=== PATIENT | female | born 1935 | race Caucasian/White ===

== ENCOUNTER → 2021-03-04 | Outpatient (CLI) | payer MEDICARE, OTHER ==
[~2021-03-04] MED LIST: ASA81BEC PO; BIOTIN; CALCIUM; CLARITIN10 MG PO; CULTURELLE KID1 EAC1 PO; INDERAL LA120 M1 PO; MAXZIDE-25 MG1 EACH PO; MELOXICAM7.5 MG PO; PREMARIN0.625 MG PO; PROZAC10 M1 PO; RIVASTIGMINE3 MG PO; SINGULAIR 10 MG10 MG PO; SYNTHROID100 MC1 PO; TOPROL XL50 MG PO; TYLENOL 8 HOUR650 MG PO; VITAMIN C; VITAMIN D; VYTORIN 10-401 EACH PO; [UNRECOGNIZED DRUG - OTHER]
--- NOTE | 2021-03-04 17:42 | CARDNUC ---
[place] [address] CARDIAC NUCLEAR IMAGING REPORT Name: EDEN MARTINEZ Room: [facility]#: [id number] Admission: 03/04/21 Attend Phys: Luis Miguel Booth, Discharge: Date of : 35 Date of Service: 03/04/21 1742 Report #: [id number] THIS REPORT FOR: cc: Gloria Barraza MD, Jayne Lora MD Liston, Michael J. MD [facility] ~ APPROVED REPORT Study performed: 03/04/2021 14:20:10 Exam: Nuclear Stress Test Indication: Chest pain, ABN EKG, rapid HR, VPC's, palpitations. Patient Location: Out-Patient Stress Tech: Rebekah Ruiz Stress Nurse: Laurence Snyder Tech:SHIRA Galarza Ht: 5 ft 4 in Wt: 158 lbs BSA: 1.77 m2 BMI: 27.11 Medical History Medical History: Chest pain, ABN EKG, HTN, HLD, rapid HR, LBBB, palpitations, VPC's, recent fall, OA, aortic aneurysm, dementia, breast cancer, hypothyroidism, near syncope, scoliosis, spinal stenosis, vertigo, knee and spine surgery, poor historian. Medications: ASA 81 mg, vytorin, propranolol, dyazide. Allergies: [facility] Cardiac Risk Factors: Age, HTN, Hyperlipidemia, VPC's, aortic aneurysm, LBBB. Previous Cardiac Procedures: None Pretest Chest Pain Characteristics: No chest pain Exercise History: Sedentary Physical Disabilities: LBBB, weakness, unstable gait. Meds Held (24 hrs): Propranolol. Stress Test Details Stress Test: Pharmacologic stress testing performed using 0.4 mg of regadenoson per 5 mL given IV over 10 seconds. Reason for pharmacologic stress test: LBBB, weakness, unstable gait.. HR Resting HR: 74 bpm Max Heart Rate (APMHR): 135 [place] [address] CARDIAC NUCLEAR IMAGING REPORT Name: EDEN MARTINEZ Room: [facility]#: [id number] Admission: 03/04/21 Attend Phys: Luis Miguel Booth, Discharge: Date of : 35 Date of Service: 03/04/21 1742 Report #: [id number] Max HR Achieved: 124 bpm Target HR (85% APMHR): 114 bpm % of APMHR: 91 Recovery HR: 96 bpm BP Resting BP: 197/86 mmHg Max BP: 188/74 mmHg ECG Resting ECG: Sinus Rhythm, LBBB Stress ECG: Sinus tachycardia, LBBB ST Change: None Arrhythmia: VPC's Recovery ECG: Sinus Rhythm, LBBB Recovery ST Change: None Recovery Arrhythmia: VPC's Clinical Reason for Termination: Completed protocol Stress Symptoms: Dyspnea, chest heaviness, heart skipping feeling, headache, shaky hands/arms. Exercise duration: 00 min 00 sec Exercise capacity: 1.00 METs The patient tolerated Lexiscan stress protocol without significant cardiac symptoms. Nurse Comments An 85 year old female presented for a sitting Lexiscan. Test well tolerated. Recovery unremarkable. Patient was stable and stated she felt good when escorted via wheelchair to Nuclear Medicine for imaging. Stress ECG Conclusion The baseline twelve-lead EKG shows sinus rhythm with left bundle branch block. EKGs obtained during and post Lexiscan showed sinus rhythm and sinus tachycardia with left bundle branch block. There were frequent unifocal premature ventricular contractions noted. NM EXAM: Myocardial Perfusion REST/STRESS Imaging Protocol: Rest Tc-99m/Stress Tc-99m 1 day Resting Data Rest SPECT myocardial perfusion imaging was performed in supine position 30 minutes following the intravenous injection of 11.8 mCi of Tc-99m Sestamibi. Time of rest injection: 1255 Date: 03/04/2021 [place] [address] CARDIAC NUCLEAR IMAGING REPORT Name: EDEN MARTINEZ Room: [facility]#: [id number] Admission: 03/04/21 Attend Phys: Luis Miguel Booth, Discharge: Date of : 35 Date of Service: 03/04/21 1742 Report #: [id number] The images were gated to evaluate regional wall motion and calculate left ventricular ejection fraction. Administration Route: IV Administration Site: Left AC Pharmacologic Stress Pharmacologic stress test was performed by injecting Regadenoson 0.4 mg IV push followed by the intravenous injection of 32.4 mCi of Tc-99m Sestamibi. Time of stress injection: 1440 Date: 03/04/2021 Administration Route: IV Administration Site: Left AC Gated Stress SPECT was performed 40 minutes after stress injection. The images were gated to evaluate regional wall motion and calculate left ventricular ejection fraction. Prone imaging was performed. Study Quality Study: Fair Artifact: Moderate Breast artifact Study Data At rest, the left ventricular ejection fraction was 84%.. Post stress, the left ventricular ejection was 85%.. TID = 1.18. Perfusion Perfusion images obtained at rest and post Lexiscan stress show relatively uniform uptake of the radioisotope throughout the myocardium. There is a moderate amount of mild breast attenuation artifact noted. Wall Motion Normal left ventricular wall motion. Nuclear Conclusion ECG Findings: non-diagnostic Clinical Findings: negative for ischemia Nuclear Findings: negative for ischemia Exercise Capacity: not assessed Left Ventricular Function: normal Risk Study: low Perfusion study show no defect to suggest infarct or ischemia. Left ventricular systolic function appears normal on gated study. This [place] [address] CARDIAC NUCLEAR IMAGING REPORT Name: ALPHONSODENISSEEDEN C Room: [facility]#: [id number] Admission: 03/04/21 Attend Phys: Luis Miguel Booth, Discharge: Date of : 35 Date of Service: 03/04/21 1742 Report #: [id number] <Conclusion> The baseline twelve-lead EKG shows sinus rhythm with left bundle branch block. EKGs obtained during and post Lexiscan showed sinus rhythm and sinus tachycardia with left bundle branch block. There were frequent unifocal premature ventricular contractions noted. <ELECTRONICALLY SIGNED> By: Denis Gonzalez MD, FACC 03/04/211741 41 41 Denis Gonzalez MD, FACC /INF
== END ==
LOC: M.NUC 02-20 09:34
PROVIDERS: ATTEND Internal Medicine
DX: R00.0 Tachycardia, unspecified (principal); R94.31 Abnormal electrocardiogram [ECG] [EKG]; I49.3 Ventricular premature depolarization; I44.7 Left bundle-branch block, unspecified; R07.9 Chest pain, unspecified